=== PATIENT | male | born 1985 | race Caucasian/White ===

== ENCOUNTER 2020-12-14 11:18 | Emergency (ER) | payer OTHER ==
[~2020-12-14] VITALS: Ht 170.2 cm; Wt 81.7 kg
[2020-12-14] MEDS ORDERED: LISINOPRIL10 MG PO (11:42)
[2020-12-14] MEDS ORDERED: VITAMIN C1000 MG PO (11:43)
[2020-12-14] MEDS ORDERED: VITAMIN C1000 MG (11:44)
[2020-12-14] MEDS ORDERED: ONE-DAILY MULT1 EAC1 PO (11:45)
[2020-12-14] MEDS ORDERED: ONDANSETRON ODT4 MG PO (13:44)
== END 2020-12-14 14:10 | disposition home or self-care (01) ==
LOC: ED 11:18
DX: U07.1 COVID-19 (principal); Z79.899 Other long term (current) drug therapy
CPT/HCPCS: 80053; 85025; 96374; 99284-25; J2405; J7030; M0243; Q0244